=== PATIENT | male | born 1975 | race Caucasian/White ===

== ENCOUNTER 2016-12-08 19:23 | Inpatient (IN) | payer OTHER ==
--- NOTE | ~2016-12-08 | DS ---
Unit #: [id number] #: [id number] Patient: TRVE LIN [id number] [facility] [address] [place] [address] [id number] MR#: [id number] NAME: TREV LIN ROOM: [facility] Age: 41 Sex: M Admission Date: 12/08/2016 : 1975 Discharge Date: 12/11/2016 Attending Physician: Laurent Keita M.D. Primary Care Physician: Primary Care Physician No DISCHARGE SUMMARY REASON FOR ADMISSION Detox, polysubstance abuse. DIAGNOSTIC STUDIES LABORATORY RESULTS: Positive for cocaine, amphetamine, marijuana, and opioid. HOSPITAL COURSE The patient was admitted to inpatient unit on 12/08/2016 and discharged on 12/11/2016. The patient was treated on the inpatient unit with group therapy, individual therapy, and medication management. The patient was mostly seclusive and isolative during the treatment, but was able to maintain safe behavior. Denied any psychotic symptom or any suicidal ideation. The patient was subsequently discharged with a plan to follow up in outpatient clinic. DISCHARGE MEDICATIONS None. DISCHARGE DIAGNOSES Psychiatric: 1. Opioid use disorder, severe. 2. Cannabis abuse disorder, moderate. 3. Cocaine use disorder, severe. 4. Mood disorder, not otherwise specified. Secondary diagnosis: Deferred. Medical diagnosis: None. Stressors: Psychosocial stressors. DISCHARGE INSTRUCTIONS The patient is to follow up in outpatient clinic as per social service technician. CONDITION ON DISCHARGE The patient was pleasant and cooperative. Denied any psychotic symptom or any suicidal ideation. PROGNOSIS Guarded. DIET AND ACTIVITY As tolerated. Unit #: [id number] #: [id number] Patient: TREV LIN Dictated by... Debi Freguson/citlaly TD: 12/11/2016 16:22 JOB #: [id number] DISCHARGE SUMMARY X Laurent Keita MD X DISCHARGE SUMMARY
--- NOTE | ~2016-12-08 | PN ---
Unit #: [id number] #: [id number] Patient: TREV LIN [id number] [facility] [address] [place] [address] [id number] MR#: [id number] NAME: TREV LIN ROOM: [facility] Age: 41 Sex: M Admission Date: 12/08/2016 : 1975 Attending Physician: Laurent Keita M.D. Admitting Physician: Laurent Keita M.D. Primary Care Physician: Primary Care Physician Renata BRYD PROGRESS NOTES DATE 12/10/2016 DISCUSSION Mr. Trev Lin is a 41-year-old male seen on 12/10/2016. Patient continues to be very drowsy, withdrawn, isolative, guarded. Patient's vital signs 98.6, 98, 140/93. Patient showing minimal interaction, isolative, flat, sad, dysphoric. Patient did not show any aggression, isolative. Patient having body aches, nausea, anxiety. Complete review of system unremarkable. MENTAL STATUS EXAMINATION General appearance, patient dressed casually. Hygiene and grooming somewhat poor. Attention span, concentration poor. Orientation in place. Mood and affect labile. Speech slow. Thought process circumstantial, guarded but denied any thoughts of harming self or others. Recent and remote memory poor. Insight and judgement poor. DIAGNOSES 1. Opiate use disorder, severe. 2. Cannabis abuse disorder, severe. 3. Mood disorder NOS. ASSESSMENT/PLAN Advised to continue with current medications and therapeutic protocol. Will monitor response to medication and make further adjustment of medication. Dictated by... Debi Ferguson/fabiola TD: 12/11/2016 22:36 JOB #: [id number] Unit #: [id number] #: [id number] Patient: TREV LIN PROGRESS NOTES X Laurent Keita MD PROGRESS NOTE
--- NOTE | ~2016-12-08 | PN ---
Unit #: [id number] #: [id number] Patient: TREV LIN [id number] [facility] [address] [place] [address] [id number] MR#: [id number] NAME: TREV LIN ROOM: [facility] Age: 41 Sex: M Admission Date: 12/08/2016 : 1975 Attending Physician: Laurent Keita M.D. Admitting Physician: Laurent Keita M.D. Primary Care Physician: Primary Care Physician No [facility] PROGRESS NOTES DATE 12/09/2016 DISCUSSION Mr. Emery is a 41-year-old male, seen on 12/09/2016. The patient interviewed, chart reviewed, and obtained information from the nursing staff. The patient's vital signs, temperature 98.1, pulse 93, respirations 20, and blood pressure 138/83. Height: 5 feet 11 inches. Weight: 140 pounds. The patient sad and depressed, withdrawn, isolative, guarded. REVIEW OF SYSTEMS Complete review of systems unremarkable. MENTAL STATUS EXAMINATION General appearance: Patient casually dressed. Attention span and concentration, poor. Oriented to place and person. Mood and affect, labile. Speech, rapid. Thought process, circumstantial. Association, the patient denied any thoughts of harming self or others but sad, depressed, withdrawn, isolative, and guarded. Recent and remote memory, poor. Insight and judgment, poor. DIAGNOSIS F11.10, F11.20, F12.20, F14.10, F32.9. ASSESSMENT/PLAN Advised to continue with the current medication and therapeutic protocol and will monitor response to medication, and make further adjustment of medication if needed. Dictated by... Debi Ferguson/magdalena Unit #: [id number] #: [id number] Patient: TREV LIN TD: 12/11/2016 06:47 JOB #: [id number] [facility] PROGRESS NOTES X Laurent Keita MD PROGRESS NOTE
--- NOTE | ~2016-12-08 | PA ---
Unit #: [id number] #: [id number] Patient: TREV LIN [id number] [place] [address] [id number] MR#: [id number] NAME: TREV LIN ROOM: [facility] Age: 41 Sex: M Admission Date: 12/08/2016 : 1975 Date of Assessment: Attending Physician: Laurent Keita M.D. Admitting Physician: Laurent Keita M.D. Primary Care Physician: Primary Care Physician No PSYCHIATRIC ASSESSMENT REASON FOR ADMISSION Opioid abuse, cannabis abuse, and depression. HISTORY OF PRESENT ILLNESS Mr. Trev Lin is a 41-year-old male, presented with the above-mentioned complaint. The patient has a history of previous treatment in [facility]. The patient presented with detox symptoms. The patient reported using 1 g of heroin daily; also reported using meth, cannabis, and cocaine, last use yesterday. The patient reported not be safe living at home and unable to contract for safety. The patient reported addiction and feeling suicidal. The patient reported 5 year of sobriety while incarcerated. The patient reported not sleeping and not eating. Denied any homicidal ideation or any psychotic symptom. The patient reported marijuana use, age of onset 17; tobacco, age of onset 17; crack cocaine, age of onset 17; LSD, age of onset 17; opioid, age of onset 23; amphetamine, age of onset 17; and methadone, age of onset 31. The patient reported history of withdrawal symptoms, but no history of any HIV, hepatitis, blackouts, history of IV drug use. Currently, complaining of muscle cramping, abdominal cramping, diarrhea, hot and cold chills. Needing inpatient admission at this time for psychiatric stabilization. PAST PSYCHIATRIC HISTORY Remarkable for history of previous treatment in skilled nursing. No other history known at this time. FAMILY HISTORY AND SOCIAL HISTORY Poor family support. No history of any abuse. According to the intake report, history of substance abuse in father and sister. The patient reports legal problems, court date 12/27/2016 for trespassing and possession of stolen property over 10,000 dollars. MEDICAL HISTORY Unremarkable. Musculoskeletal; muscle strength and tone, no atrophy or abnormal movement. Gait normal. MEDICATION HISTORY None. ALLERGIES No known drug allergies. SUBSTANCE ABUSE HISTORY Please see above. Unit #: [id number] #: [id number] Patient: TREV LIN REVIEW OF SYSTEMS HEENT: Eyes, clear. Ears, nose, mouth, and throat; clear. CARDIOVASCULAR: Unremarkable. RESPIRATORY: Unremarkable. GI: Unremarkable. : Unremarkable. SKIN: Unremarkable. LYMPH NODE: Unremarkable. NEUROLOGIC: Unremarkable. ENDOCRINE: Unremarkable. HEMATOLOGIC: Unremarkable. ALLERGIC/IMMUNOLOGIC: Unremarkable. MUSCULOSKELETAL: Muscle strength and tone, no atrophy or abnormal movement. Gait normal. MENTAL STATUS EXAMINATION CONSTITUTIONAL: Measurement of vital signs; temperature 97.9, pulse 81, respirations 20, and blood pressure 135/94. Height 5 feet 11 inches and weight 140 pounds. GENERAL APPEARANCE: The patient dressed casually. The patient did not show any facial deformity. MUSCULOSKELETAL: Please see above. PSYCHIATRIC EXAMINATION Description of speech; regular rate, normal volume. Description of thought process, circumstantial. Description of association, intact. Description of abnormal psychotic thinking; the patient reported depression, anxiety, substance abuse, but denied any homicidal ideation. Suicidal ideation, positive. Description of the patient's judgment: Concerning everyday activity, poor. Social situation, poor. Concerning psychiatric condition, poor. Complete mental status examination; oriented in time, place, and person. Recent and remote memory, fair. Attention span and concentration, fair. Language; able to name object, repeat phrases. Fund of knowledge, fair. Insight and judgment, poor. Mood and affect, labile. ASSETS AND LIABILITIES Assets; the patient is articulate, able to take care of his ADL. Liabilities; legal problems, substance abuse, depression. ADMITTING DIAGNOSES Psychiatric: 1. Opioid use disorder, severe, F11.20. 2. Cannabis abuse disorder, moderate, F12.20. 3. Cocaine use disorder, severe, F14.20. 4. Mood disorder, not otherwise specified, F32.9. Secondary diagnosis: Deferred. Medical diagnosis: None. Stressors: Psychosocial stressors. PSYCHIATRIC PLAN, TREATMENT GOAL, AND DISCHARGE PLAN 1. Advised to admit the patient on the inpatient unit. Provide safe, supportive, and structured environment. 2. Ordered labs; CBC, CMP, UA, and UDS. Unit #: [id number] #: [id number] Patient: TREV LIN 3. Detox protocol and detox monitoring. If needed, consider further adjustment of medication. The patient is to attend all the programing on the inpatient unit, group therapy, individual therapy, and medication management. 4. Treatment goal is to attain euthymic mood, gain insight into his problem, and learn coping skills. 5. Discharge plan: Plan is to stabilize the patient and consider followup in outpatient program. ESTIMATED LENGTH OF STAY 5 days. Dictated by... Laurent Keita M.D. LARRY/citlaly TD: 12/09/2016 22:44 JOB #: [id number] PSYCHIATRIC ASSESSMENT X Laurent Keita MD PSYCHIATRIC ASSESSMENT
--- NOTE | ~2016-12-08 | HP ---
Unit #: [id number] #: [id number] Patient: TREV LIN [id number] [place] [address] [id number] MR#: [id number] NAME: TREV LIN ROOM: [facility] Age: 41 Sex: M Admission Date: 12/08/2016 : 1975 Attending Physician: Laurent Keita M.D. Admitting Physician: Laurent Keita M.D. Primary Care Physician: Primary Care Physician No HISTORY AND PHYSICAL HISTORY OF PRESENT ILLNESS Trev is a 41 year old admitted to [address] [place] [address] because of his poly illicit substance abuse which includes IV heroin and IV methamphetamine. PAST MEDICAL HISTORY 1. Long history of illicit substance abuse to include IV drugs. 2. Hepatitis C. PAST SURGICAL HISTORY Nothing reported. ALLERGIES No known drug allergies. SOCIAL HISTORY Smokes one pack per day. Drinks alcohol rarely. Admits to a long history of illicit substance abuse to include IV drugs. FAMILY HISTORY Medically noncontributory. REVIEW OF SYSTEMS CONSTITUTIONAL: No fever or chills. HEENT: Denies any sore throat, ear pain or runny nose. CARDIOVASCULAR: Denies chest pain, irregular heart rhythm or palpitations. CHEST: Denies shortness of breath or cough. No hemoptysis. GASTROINTESTINAL: Denies nausea, vomiting, diarrhea or chronic constipation. ENDOCRINE: Denies history of increased thirst or urination. No recent significant weight loss or gain. GENITOURINARY: Denies dysuria, frequency, or hematuria. SKIN: Denies any rashes. HEMATOLOGIC: Denies history of increased bleeding or bruising. MUSCULOSKELETAL: Denies any hot, swollen joints. No generalized muscle pain. NEUROLOGIC: Denies problems with vision or speech. No frequent, severe headaches. No numbness, tingling or weakness in any extremities. Denies loss of bladder or bowel control. CURRENT MEDICATIONS Detox protocol Unit #: [id number] #: [id number] Patient: TREV LIN PHYSICAL EXAMINATION GENERAL: Alert, appearing much much older than his age of 41, very thin, in no apparent distress. VITAL SIGNS: Blood pressure 134/94, heart rate 80, respirations 16, temperature 98.6. WEIGHT: 140 pounds. HEIGHT: 5'11". SKIN: Warm and dry without rash or lesion. HEENT: Normocephalic. TMs not viewed. Oral and nasal passages clear. Conjunctivae clear. Pupils equal, round and reactive to light and accommodation. Extraocular movements intact. NECK: Supple without lymphadenopathy or thyromegaly. HEART: Regular rate and rhythm without murmur. LUNGS: Clear. ABDOMEN: Soft, nontender. : Not done. EXTREMITIES: No evidence of cyanosis, clubbing or edema. Moves all extremities without focal deficit. NEUROLOGICAL: Grossly within normal limits. Cranial Nerves: II: Visual chavarria are intact. III, IV AND : Extraocular movements are intact. Pupils are equal, round and reactive to light. V: Facial sensation is grossly normal. VII: Facial movements and expression are normal. VIII: Auditory acuity grossly intact. IX, X: Uvula is midline. Phonation is normal. XI: Patient shrugs shoulders and turns head normally. XII: Tongue protrudes in the midline. Sensory and Motor Function: Sensory and motor sensation is grossly normal. Motor: moves all extremities well. Coordination: Gait is normal. Deep Tendon Reflexes: Intact. IMPRESSION Psychiatric admission RECOMMENDATIONS PSYCHIATRIC: Per psychiatrist. MEDICAL: I see no contraindications to participating in facility's activities. MEDICAL PROGNOSIS Good. MEDICAL CONDITION Stable. Dictated by... Sebastian ContiARene-Fidencio. for Debi Britton/diana TD: 12/10/2016 04:31 JOB #: [id number] Unit #: [id number] #: [id number] Patient: TREV LIN HISTORY AND PHYSICAL X Katie Zepeda PA X HISTORY AND PHYSICAL
--- NOTE | ~2016-12-08 | A ---
[facility] Nutrition Therapy DATE: 12/10/16 Patient: TREV LIN Physician: SANDRA Address: [address] [place] [address] Room/Bed: [address], Zip: [place] [address] Admit Date: 12/08/16 Date of : [birth year] Height: 5 11 Weight: 139 63.68160 NUTRITIONAL ASSESSMENT: REASON: NUTRITIONAL RISK POINT- UNINTENTIONAL WEIGHT LOSS PATIENT ADMITTED FOR HEROIN AND METH DETOX PMH: HEP C, LONG HX POLYSUBSTANCE ABUSE Anthropometrics: HT: 5'11", WT: 140#, BMI: 19.5, %IBW: 81 Labs: NO LABS AVAILABLE Meds: TRAZODONE, DETOX PROTOCOL Assessment: CHART REVIEWED, EVENTS NOTED. PATIENT IS A 41 Y/O MALE ADMITTED FOR HEROIN AND METH DETOX. PATIENT IS CURRENTLY UNEMPLOYED, LIVES WITH ROOMMATE, SMOKES 1 PPD, AND USES METH, HEROIN, CANNABIS, AND COCAINE. IT IS NOTED THAT PATIENT IS GREIVING THE LOSS OF HIS LAST YEAR TO AN OVERDOSE. PATIENT STATES HE ONLY CONSUMES 1 MEAL A DAY, HAS LOST 50# X LAST 11 MONTHS, AND HAS NOT BEEN SLEEPING. NURSING REPORTS FAIR-GOOD PO INTAKES. THIS RD SUSPECTS WEIGHT AND APPETITE TO STABILIZE AND POSSIBLY INCREASE FOLLOWING DETOX AND THERAPY. CURRENT PSYCH MEDS MAY CAUSE AN INCREASE IN WEIGHT AND APPETITE. THERE ARE NO SKIN OR GI ISSUES NOTED ATT. PATIENT IS ON A REGULAR DIET. Dx: INADEQUATE NUTRIENT INTAKE R/T CURRENT CONDITION, DRUG USE AEB <90% IBW, SELF-REPORTED WEIGHT LOSS AND DECREASED APPETITE, NUTRITIONAL RISK POINT Intervention: 1. REGULAR DIET, 2. MEDS PER MD, 3. DETOX, 4. PSYCH Monitoring, Evaluation and Goals: 1. ADEQUATE PO INTAKES >50% OF MEALS 2. PREVENT, CORRECT MICRO/MACRO NUTRIENT DIFICIENCIES 3. PREVENT ANY FURTHER WEIGHT LOSS MONITOR: WEIGHTS, LABS, PO/FLUID INTAKES Recommendations: 1. CONTINUE REGULAR DIET TOLERATED. INCREASE ENTREES TO LARGE PORTIONS TO PROMOTE ADEQUATE KCAL AND PROTEIN INTAKES 2. ENCOURAGE ADEQUATE PO AND FLUID INTAKES 3. IF PO INTAKES FALL BELOW 50% OF MEALS PLEASE ORDER ENSURE BID TO PROMOTE ADEQUATE KCAL AND PROTEIN INTAKES [facility] Nutrition Therapy DATE: 12/10/16 Patient: TREV LIN Physician: CHHSUN Address: [address] [place] [address] Room/Bed: [address], Zip: [place] [address] Admit Date: 12/08/16 Date of : [birth year] Height: 5 11 Weight: [address] TO F/U PER PROTOCOL AND PRN R/T PATIENT MILDLY COMPROMISED Respectfully, MONSTER LIU RD, LD [facility] cc: client file
[2016-12-09 09:52] LABS: URINE APPEARANCE CLEAR; URINE BILIRUBIN NEG (NEG); URINE BLOOD NEG (NEG); URINE COLOR YELLOW; URINE GLUCOSE NEG (NEG); URINE KETONE NEG (NEG); URINE LEUKOCYTE ESTERASE NEG (NEG); URINE NITRATE NEG (NEG); URINE PROTEIN NEG (NEG); URINE SPECIFIC GRAVITY 1.013 (1.003-1.035); URINE UROBILINOGEN 0.2 MG/DL (NEG)
[2016-12-09 10:17] LABS: AMPHETAMINE POS (NEG); BARBITURATES NEG (NEG); BENZODIAZEPINES NEG (NEG); COCAINE POS (NEG); MARIJUANA POS (NEG); OPIATES POS (NEG); TRICYCLIC ANTIDEPRESSANTS NEG (NEG); U METHADONE NEG (NEG)
[2016-12-10 12:23] LABS: BASOPHIL% 0.4 % (0-2.5); EOSINOPHIL# 0.1 X10e3 (0-0.7); EOSINOPHIL% 0.7 % (0.0-7.0); HEMATOCRIT 47.5 % (38.0-50.0); HEMOGLOBIN 15.7 gm/dL (13.0-16.0); LYMPHOCYTE% 29.6 % (17.0-45.0); MEAN CELL VOLUME 89.5 FL (83-96); MEAN CORPUSCULAR HEMOGLOBIN 29.5 PG (28-34); MEAN PLATELET VOLUME 7.9 FL (6.5-11.5); MONOCYTE% 9.8 % (3.0-12.0); NEUTROPHIL# 6.1 X10e3 (1.5-7.1); NEUTROPHIL% 59.5 % (40-75); PLATELET COUNT 374 X10e3 (140-420); RED BLOOD COUNT 5.31 X10e (3.90-5.60); RED CELL DISTRIBUTION WIDTH 14.5 % (11.0-15.5); WHITE BLOOD COUNT 10.3 X10e3 (4.0-10.5)
[2016-12-10 12:24] LABS: DIFF IND NO
[2016-12-10 12:41] LABS: THYROID STIMULATING HORMONE 0.63 uIU/ml (0.34-5.60)
[2016-12-10 12:48] LABS: ALKALINE PHOSPHATASE 89 U/L (32-92); ALT (SGPT) 87 U/L (10-40); AST (SGOT) 57 U/L (10-42); BILIRUBIN,TOTAL 0.5 mg/dL (0.2-2.0); BLOOD UREA NITROGEN 10 mg/dL (9-23); BUN/CREATININE RATIO 14.28; CALCIUM SERUM 9.6 mg/dL (8.4-10.2); CARBON DIOXIDE 28 mmol/L (22-31); CHLORIDE 103 mmol/L (100-111); CREATININE SERUM 0.7 mg/dL (0.6-1.4); FREE THYROXIN (T4) 0.6 ng/dL (0.58-1.64); GLOM FILT RATE Estimated ABOVE60 mL/min (>60); GLUCOSE FASTING 103 mg/dL (70-110); POTASSIUM 4.6 mmol/L (3.5-5.1); PROTEIN TOTAL SERUM 7.5 g/dL (6.0-8.3); SODIUM 140 mmol/L (135-145)
== END 2016-12-11 10:51 | disposition home or self-care (01) | DRG 897 ==
LOC: P2S 19:23
PROVIDERS: Psychiatry & Neurology Psychiatry
PROC: HZ2ZZZZ Detoxification Services for Substance Abuse Treatment (ICD-10-PCS; principal; 2016-12-08)
DX: F11.20 Opioid dependence, uncomplicated (principal); F14.20 Cocaine dependence, uncomplicated; F12.20 Cannabis dependence, uncomplicated; F39 Unspecified mood [affective] disorder; B19.20 Unspecified viral hepatitis C without hepatic coma; F17.210 Nicotine dependence, cigarettes, uncomplicated
CPT/HCPCS: 80053; 80307; 81003; 84439; 84443; 85025; 86592